=== PATIENT | female | born 1955 | race Caucasian/White ===

== ENCOUNTER → 2017-01-13 | Day surgery (SDC) | payer OTHER ==
--- NOTE | 2017-01-03 16:04 | MH ---
cc: ISRAEL ALVAREZ MD DATE OF ADMISSION: 01/13/2017 DATE OF : 1955 Scheduled for admission on 01/13/2017 for cystoscopy and hydrodistention. The patient is a 61-year-old white female, G2, P2 with long history of interstitial cystitis. She has not had a recent cystoscopy. She has been using various [id number] and prescription treatments for interstitial cystitis. She has had bladder installations in the office with steroid and lidocaine 1% as well as sodium bicarbonate and heparin. She has had some limited results with the instillation was to proceed now with hydrodistention and cystoscopy. PAST MEDICAL HISTORY: The patient's medical history notable for; 1. Hypothyroidism 2. Interstitial cystitis. 3. Asthma. 4. Fibromyalgia 5. Distant history of seizure disorder. ALLERGIES LIDOCAINE WHEN GIVEN FOR DENTAL WORK CAUSED HER TO HAVE A REACTION BUT SHE HAS USED LIDOCAINE FOR SEVERAL YEARS WITH BLADDER INSTILLATION. TETRACYCLINE ALSO CAUSED RASH. MEDICATIONS 1. Synthroid 112 mcg daily. 2. Clonazepam 5 mg b.i.d. p.r.n. 3. Celebrex 20 mg daily. 4. Demerol 100 mg t.i.d. p.r.n. GYNECOLOGIC HISTORY No STDs or abnormal Pap smears. OBSTETRICAL HISTORY Two vaginal deliveries. FAMILY HISTORY Noncontributory. PAST SURGICAL HISTORY 1. Tonsillectomy 2. Appendectomy 3. Hysterectomy 4. Spinal surgery C-spine 03/18/1970 fusion SOCIAL HISTORY: Does not smokes use alcohol or drugs. FAMILY HISTORY Noncontributory. REVIEW OF SYSTEMS As above. No chest pain, orthopnea, PND. No nausea or chills. No vaginal bleeding or discharge bladder pain, is typically when it is severe is 8/10, burning and impacts negatively her quality of life. Her bladder is less painful when it is empty resulting in significant frequency of urination. PHYSICAL EXAMINATION: VITAL SIGNS: On exam she is afebrile signs stable blood pressure 120/76, 5.3, weight 140, BMI is 25. IN GENERAL: Patient is alert and oriented in stress no sign of cognitive function depression. HEAD, EYES, EARS, NOSE, AND THROAT: Normal limits is supple. No JVD. Chest: CHEST: Clear rate and rhythm. ABDOMEN: Soft, nontender. No hepatosplenomegaly. No tenderness. PELVIC EXAM: The pelvic exam will be detailed under anesthesia. EXTREMITIES: Normal, skin without rashes and nonfocal. NEUROLOGIC: No DVT signs. ASSESSMENT/PLAN: Patient with bladder pain syndrome. Unresponsive to conservative therapy at this point was proceed with a cystoscopy and hydrodistention. At this point we plan on cystoscopy to assess the urethra and bladder will extend with sterile water to a maximum pressure of 50 cm of water pressure. She is aware the risks, benefits and alternatives of the planned procedure including damage to surrounding organs, bleeding, infection, damage to the bladder as well as possibility that pain may not be relieved and may actually be worsened. Anticipate outpatient procedure. She has lab work from [facility] which will be reviewed and she will have an electrocardiogram the morning of surgery. Of note is the patient's lidocaine and "allergy" this is typically an issue when the medication is given for dental work. She has used lidocaine for several years and bladder installations and we will use it for bladder instillation at the end of procedure. In addition to sodium bicarbonate, Kenalog and heparin. MD CINDI Bunn/jose eduardo /2:20 PM /2:35 PM
[~2017-01-13] VITALS: Ht 160 cm; Wt 66.4 kg
[~2017-01-13] MED LIST: *ONDANSETRON 4 MG VIAL PERIprocedural Use ONLY ONE; CELE200C PO; CLON0.5T PO; DEXAMETHASONE SOD PHOS 4 MG/ML VIAL ONE; ELMI100C PO; ESTR42.5V VAGINAL; FAMOTIDINE 20 MG/2 ML VIAL ONE; HEPAR10KP BLADDER; HEPARIN SODIUM - SQ 10,000 UNITS/ML VIAL ONE; INSULIN HUMAN REGULAR 1,000 UNITS/10 ML VIAL SQ PRN; KETOROLAC TROMETHAMINE 10 MG TAB ONE; KETOROLAC TROMETHAMINE 10 MG TAB PO PRN; KETOROLAC TROMETHAMINE 30 MG/ML (IVP) VIAL IV PUSH PRN; KETOROLAC TROMETHAMINE 60 MG/2 ML (IM) VIAL IM ONE; KETOROLAC TROMETHAMINE 60 MG/2 ML (IM) VIAL IM PRN; LACTATED RINGER'S 1000 ML IV SCH; LEVO-168 PO; LIDOCAINE HCL 1% 50 ML VIAL ONE; LORA-474 PO; MACR100C2 PO; METOPROLOL TARTRATE 25 MG TAB PO PRN; MIDAZOLAM HCL 2 MG/2 ML VIAL ONE; MILN25 PO; ONDANSETRON HCL 4 MG/2 ML VIAL IV PUSH ONE; ONDANSETRON HCL 4 MG/2 ML VIAL IV PUSH PRN; PROPOFOL 200 MG/20 ML AMP IV ONE; SODIUM BICARBONATE 8.4% INJ 50 ML ONE; SODIUM BICARBONATE 8.4% SOLN 50 MEQ/50 ML VIAL XX ONE; SODIUM CHLORID 0.9% 500 ML IV SCH; TAMS0.4C4 PO; TRIA40P BLADDER; TRIAMCINOLONE ACETONIDE 40 MG/ML VIAL I-LESIONAL ONE; TRIAMCINOLONE ACETONIDE 40 MG/ML VIAL ONE; ZONI25CA2 PO; [UNRECOGNIZED DRUG - CODE] BLADDER; [UNRECOGNIZED DRUG - CODE] BLADDER; [UNRECOGNIZED DRUG - CODE] PO; ceFAZolin 1,000 MG/NS 100 ML IV SCH
[2017-01-13 06:39] VITALS: BP 120/82; PULSE 71; RESP 16; TEMP 97; O2SAT 99
[2017-01-13 10:40] VITALS: BP 130/70; PULSE 68; RESP 18; TEMP 97.8; O2SAT 100
--- NOTE | 2017-01-14 20:34 | MP ---
cc: ISRAEL ALVAREZ DATE OF SURGERY 01/13/17 PREOPERATIVE DIAGNOSES Interstitial cystitis/bladder pain syndrome POSTOPERATIVE DIAGNOSES Interstitial cystitis/bladder pain syndrome PROCEDURE 1. Diagnostic cystoscopy with hydrodistention 2. Bladder instillation with sodium bicarbonate, heparin, lidocaine, Kenalog. SURGEON Briana Alvarez MD ANESTHESIA Laryngeal mask [employer] [place] staff x1 FLUIDS 1000 mL crystalloid. Distension medium for cystoscopies is water URINE OUTPUT 300 mL prior to case FINDINGS External genitalia poorly estrogenized, fissure noted at the fourchette. Pop Q score Aa -3, Ap is -3, point C is -8, total vaginal length is 10. General hiatus is four. Perineal body is 4, external hemorrhoids noted. Rectal exam otherwise unremarkable. No intrinsic rectal mass. Cystoscopy shows mild trigonitis, anesthetic bladder capacity 700 mL. Repeat cystoscopy following hydrodistention shows no significant glomerulations, no evidence of ulcers or mass. SPECIMENS None COMPLICATIONS None DISPOSITION Recovery room stable. COUNTS Sponge and needle count correct. DRAINS None. ANTIBIOTICS PROPHYLAXIS Ancef 1 gram DVT PROPHYLAXIS Sequential compression device. Time-out procedure per protocol SUMMARY OF INDICATION FOR PROCEDURE Patient with long history of interstitial cystitis with recent flare. She had been treated in the office with bladder instillation with sodium bicarbonate, Kenalog, heparin, lidocaine. (Of note, the patient reports an allergy to Lidocaine but only with dental procedures which appears to be more of a vasovagal response in that she has used lidocaine in the bladder for several years). The patient had issue with continued irritation. She had a urinalysis that was positive for E-coli and was treated. She had some relief but decision was made to proceed with cystoscopy and bladder instillation with hydrodistention. PROCEDURE IN DETAIL The patient was taken to the operating theater and prepped, draped in fashion appropriate for planned procedures. She was placed in dorsal spine position with careful attention paid to placement of legs in stirrups to avoid undue stress to sensitive neurovascular structures. Above findings noted. Neuro vasculature documented. 17-[place] bridge, a 70 degree scope was placed. Bladder was drained of 300 mL of blue tinged urine which is consistent with her use Uribel bladder analgesic. The systematic inspection of the bladder showed no significant lesions. No evidence of ulceration, glomerulation or mass. Bladder was instilled with 700 mL of water with a pressure of no greater than 50 cm of water. The bladder was drained and then reinspected with the cystoscope with the above findings of no significant glomerulations with some evidence of mild trigonitis. Ureteral orifices are patent x2. There was no sign of any diverticula in the urethra. She had good coaptation of the urethral vesical junction At this point, bladder instillation performed with the above cocktail of sodium bicarbonate, heparin, Kenalog, lidocaine. The procedure concluded. The patient reversed from anesthesia, taken to recovery in stable condition. Should the patient have issues with continued pain, she may be a reasonable candidate for sacral nerve stimulation but with a bladder capacity is 700 mL she does not have a constricted fibrotic bladder and most likely would do well. MD CINDI Bunn/ /9:05 AM /8:14 PM
--- NOTE | 2017-01-18 18:54 | EKG ---
Date Performed: 01/13/2017 Time Performed: 06:50:51 PTAGE: 61 years EKG: Sinus rhythm WITH SINUS ARRHYTHMIA NORMAL ECG PREVIOUS TRACING : 07/12/2010 18.10 DOCTOR: Kenny Vallecillo Interpretating Date/Time 01/18/2017 18:50:36
== END | disposition home or self-care (01) ==
LOC: HSDC 05:56
PROVIDERS: ATTEND Obstetrics & Gynecology Gynecology
DX: N30.10 Interstitial cystitis (chronic) without hematuria (principal); R39.89 Other symptoms and signs involving the genitourinary system; N30.30 Trigonitis without hematuria; Z01.810 Encounter for preprocedural cardiovascular examination; E03.9 Hypothyroidism, unspecified; J45.909 Unspecified asthma, uncomplicated; M79.7 Fibromyalgia
CPT/HCPCS: 00910; 51700; 52260; 93005; J0690; J1100; J1644; J1885; J2250; J2405; J3301; J7120